=== PATIENT | male | born 1990 | race Caucasian/White ===

== ENCOUNTER 2017-09-13 02:21 | Emergency (ER) | payer SELFPAY ==
[2017-09-13] MEDS ORDERED: HYDROmorphone 2 MG/ML Syringe IM ONE (02:46)
--- NOTE | 2017-09-13 02:46 | EDM.PDOC ---
ED HPI GENERAL MEDICAL PROBLEM - General Chief Complaint: Lower Extremity Injury/Pain Stated Complaint: LEFT LEG- TWO BROKEN BONES Time Seen by Provider: 09/13/17 02:42 - History of Present Illness INITIAL COMMENTS - FREE TEXT/NARRATIVE: HISTORY AND PHYSICAL: History of present illness: The patient is a 27 y/o male who presents here for pain control after being diagnosed with a tib-fib fracture at [facility] earlier this evening. The patient was evaluated there with x-ray and was given fentanyl for pain while there and a prescription for Percocet as well as Percocet for home and was referred to Dr. Valentine in the clinic and he is scheduled to see him at 8 AM. The orthopedic surgeon was contacted about this patient. He was advised not to eat or drink anything after midnight. The patient says that the Percocet are not working and he is here for pain medication. Review of systems: As per history of present illness and below otherwise all systems reviewed and negative. Past medical history: As per history of present illness and as reviewed below otherwise noncontributory. Surgical history: As per history of present illness and as reviewed below otherwise noncontributory. Social history: No reported history of drug or alcohol abuse. Family history: As per history of present illness and as reviewed below otherwise noncontributory. Physical exam: General: Well-developed well-nourished man who is nontoxic and vital signs are noted by me HEENT: Atraumatic, normocephalic, negative for conjunctival pallor or scleral icterus, mucous membranes moist, throat clear, neck supple, nontender, trachea midline. Lungs: Clear to auscultation, breath sounds equal bilaterally, chest nontender. Heart: S1S2, regular rate and rhythm no overt murmurs Abdomen: Soft, nondistended, nontender. NABS Pelvis: Stable nontender. Genitourinary: Deferred. Rectal: Deferred. Extremities: Patient has a cam boot in place and would prefer that I not remove it due to discomfort. Toes are warm and pink with good cap refill. Neuro: Awake, alert, oriented. Patient ambulated using crutches. Motor and sensory unremarkable throughout. Exam nonfocal. Diagnostics: His x-rays from [place] are here on the computer and I've contacted Dr. Valentine at [phone] and he agrees with pain management and he will see the patient in his clinic. Therapeutics: Dilaudid IM Toradol Impression: Ankle fracture with inadequate pain management Definitive disposition and diagnosis as appropriate pending reevaluation and review of above. Left Lower Leg Pain Score (Numeric/FACES): 9 - Related Data Allergies Allergy/AdvReac Type Severity Reaction Status Date / Time No Known Allergies Allergy Verified 09/13/17 02:35 Home Meds: Home Meds . [No Known Home Meds] 09/13/17 [History] Past Medical History HEENT History: Reports: None Cardiovascular History: Reports: None Respiratory History: Reports: None Gastrointestinal History: Reports: None Genitourinary History: Reports: None Musculoskeletal History: Reports: None Neurological History: Reports: None Psychiatric History: Reports: None Endocrine/Metabolic History: Reports: None Hematologic History: Reports: None Immunologic History: Reports: None Oncologic (Cancer) History: Reports: None Dermatologic History: Reports: None - Infectious Disease History Infectious Disease History: Reports: None - Past Surgical History Head Surgeries/Procedures: Reports: None Male Surgical History: Reports: None Social & Family History - Family History HEENT: Reports: None - Caffeine Use Caffeine Use: Reports: None - Alcohol Use Days Per Week of Alcohol Use: 7 Number of Drinks Per Day: 2 Total Drinks Per Week: 14 - Recreational Drug Use Recreational Drug Use: No Review of Systems - Review of Systems Review Of Systems: ROS reveals no pertinent complaints other than HPI. ED EXAM, GENERAL - Physical Exam Exam: See Below (see dictation) Course - Vital Signs Last Recorded V/S: Last Vital Signs Temp 37.1 C 09/13/17 02:31 Pulse 109 H 09/13/17 02:31 Resp 20 09/13/17 02:31 BP 135/68 09/13/17 02:31 Pulse Ox 98 09/13/17 02:31 - Orders/Labs/Meds Orders: Active Orders 24 hr Category Date Time Status HYDROmorphone [Dilaudid] Med 09/13/17 02:46 Once 2 mg IM ONETIME ONE Departure - Departure Time of Disposition: 02:54 Disposition: Home, Self-Care 01 Condition: Good Clinical Impression: Ankle fracture Qualifiers: Encounter type: initial encounter Fracture type: closed Laterality: right Qualified Code(s): S82.891A - Other fracture of right lower leg, initial encounter for closed fracture Ankle pain Qualifiers: Chronicity: acute Laterality: right Qualified Code(s): M25.571 - Pain in right ankle and joints of right foot - Discharge Information Referrals: PCP,None [Primary Care Provider] - Forms: ED Department Discharge Additional Instructions: The following information is given to patients seen in the emergency department who are being discharged to home. This information is to outline your options for follow-up care. We provide all patients seen in our emergency department with a follow-up referral. The need for follow-up, as well as the timing and circumstances, are variable depending upon the specifics of your emergency department visit. If you don't have a primary care physician on staff, we will provide you with a referral. We always advise you to contact your personal physician following an emergency department visit to inform them of the circumstance of the visit and for follow-up with them and/or the need for any referrals to a consulting specialist. The emergency department will also refer you to a specialist when appropriate. This referral assures that you have the opportunity for followup care with a specialist. All of these measure are taken in an effort to provide you with optimal care, which includes your followup. Under all circumstances we always encourage you to contact your private physician who remains a resource for coordinating your care. When calling for followup care, please make the office aware that this follow-up is from your recent emergency room visit. If for any reason you are refused follow-up, please contact the [facility] emergency department at and ask to speak to the emergency department charge nurse. [facility]--Orthopedic clinic Professional [address] [id number] Please continue to wear the cam boot and loosen while you're sleeping and use crutches at all times. Please contact the orthopedic clinic at 8 AM to have an appointment made to see Dr. Valentine today and fill your prescription for Percocet the you have been given and take as directed. Ice and elevate as much as possible. - My Orders Last 24 Hours: My Active Orders 09/13/17 02:46 HYDROmorphone [Dilaudid] 2 mg IM ONETIME ONE - Assessment/Plan Last 24 Hours: My Active Orders 09/13/17 02:46 HYDROmorphone [Dilaudid] 2 mg IM ONETIME ONE
[2017-09-13] MEDS ORDERED: Ketorolac 60 MG/2 ML SDV IM ONE (02:56)
[2017-09-13] MEDS ORDERED: Ketorolac 60 MG/2 ML SDV ONE (02:59)
[2017-09-13] MEDS ORDERED: HYDROmorphone 1 MG/ML Syringe IM ONE (03:00)
[2017-09-13] MEDS ORDERED: HYDROmorphone 1 MG/ML Syringe ONE (03:00)
== END 2017-09-13 03:49 | disposition home or self-care (01) ==
LOC: MW.ED 02:21
DX: S82.891A Other fracture of right lower leg, initial encounter for closed fracture (principal); W17.89XA Other fall from one level to another, initial encounter
CPT/HCPCS: 96372; 99283; J1170; J1885

== ENCOUNTER 2017-09-17 12:14 | Day surgery (SDC) | payer SELFPAY ==
[2017-09-17] MEDS ORDERED: fentaNYL 250 MCG/5 ML SDV ONE (12:26)
[2017-09-17] MEDS ORDERED: Propofol 200 MG/20 ML SDV ONE (12:26)
[2017-09-17] MEDS ORDERED: Midazolam 1 MG/ML 2 ML SDV ONE (12:26)
[2017-09-17] MEDS ORDERED: Ondansetron 4 MG/2 ML SDV ONE (12:26)
[2017-09-17] MEDS ORDERED: Lidocaine 2% 5 ML SDV ONE (12:26)
--- NOTE | 2017-09-17 12:37 | PCM.PREANE ---
Preanesthetic Assessment - Anesthesia/Transfusion/Family Hx Anesthesia History: No Prior Anesthesia Family History of Anesthesia Reaction: No Transfusion History: No Prior Transfusion(s) Intubation History: Unknown - Review of Systems General: No Symptoms Pulmonary: No Symptoms Cardiovascular: No Symptoms Gastrointestinal: No Symptoms Neurological: No Symptoms Other: Reports: None - Physical Assessment Height: 1.91 m Weight: 108.862 kg ASA Class: 2 Mental Status: Alert & Oriented x3 Airway Class: Mallampati = 2 Dentition: Reports: Normal Dentition (lower retainer) Thyro-Mental Finger Breadths: 3 Mouth Opening Finger Breadths: 2 ROM/Head Extension: Full Lungs: Clear to Auscultation, Normal Respiratory Effort Cardiovascular: Regular Rate, Regular Rhythm - Allergies Allergies/Adverse Reactions: Allergies Allergy/AdvReac Type Severity Reaction Status Date / Time No Known Allergies Allergy Verified 09/13/17 02:35 - Blood Blood Available: No - Anesthesia Plan Pre-Op Medication Ordered: None - Acknowledgements Anesthesia Type Planned: General Anesthesia Pt an Appropriate Candidate for the Planned Anesthesia: Yes Alternatives and Risks of Anesthesia Discussed w Pt/Guardian: Yes Pt/Guardian Understands and Agrees with Anesthesia Plan: Yes PreAnesthesia Questionnaire HEENT History: Reports: Other (See Below) Other HEENT History: has lower permanent dental retainer Cardiovascular History: Reports: None Respiratory History: Reports: None Gastrointestinal History: Reports: None Genitourinary History: Reports: None Musculoskeletal History: Reports: Other (See Below) (Rt. ankle fx) Neurological History: Reports: None Psychiatric History: Reports: None Endocrine/Metabolic History: Reports: Obesity/BMI 30+ Hematologic History: Reports: None Immunologic History: Reports: None Oncologic (Cancer) History: Reports: None Dermatologic History: Reports: None - Infectious Disease History Infectious Disease History: Reports: None - Past Surgical History Head Surgeries/Procedures: Reports: None Male Surgical History: Reports: None - SUBSTANCE USE Smoking Status *Q: Current Every Day Smoker Tobacco Use Within Last Twelve Months: Cigarettes Recreational Drug Use History: No - HOME MEDS Home Medications: Home Meds oxyCODONE HCl/Acetaminophen [Percocet 5-325 mg Tablet] 1 - 2 tab PO Q4H PRN [History] - CURRENT (IN HOUSE) MEDS Current Meds: Current Medications Discontinued Medications Fentanyl (Sublimaze) Confirm Administered Dose 250 mcg .ROUTE .STK-MED ONE Stop: 09/17/17 12:27 Cefazolin Sodium 2,000 mg/ (Sodium Chloride) 100 mls @ 100 mls/hr IV ONETIME ONE Stop: 09/17/17 07:56 Acetaminophen (Ofirmev) Confirm Administered Dose 100 mls @ as directed IV .STK- MED ONE Stop: 09/17/17 12:29 Lidocaine (Xylocaine-Mpf 2%) Confirm Administered Dose 5 ml .ROUTE .STK-MED ONE Stop: 09/17/17 12:27 Midazolam HCl (Versed 1 Mg/Ml) Confirm Administered Dose 2 mg .ROUTE .STK-MED ONE Stop: 09/17/17 12:27 Ondansetron HCl (Zofran) Confirm Administered Dose 4 mg .ROUTE .STK-MED ONE Stop: 09/17/17 12:27 Propofol (Diprivan 20 Ml) Confirm Administered Dose 200 mg .ROUTE .STK-MED ONE Stop: 09/17/17 12:27
[2017-09-17] MEDS ORDERED: Bupivacaine 0.5% 30 ML SDV ONE (12:57)
[2017-09-17] MEDS ORDERED: Lactated Ringers 1,000 ML IV SCH (13:00)
[2017-09-17] MEDS ORDERED: Ketorolac 30 MG/ML SDV ONE (13:30)
[2017-09-17] MEDS ORDERED: HYDROmorphone 2 MG/ML SDV ONE (13:39)
[2017-09-17] MEDS ORDERED: Meperidine PF 50 MG/ML Syringe IVPUSH ONE (13:58)
[2017-09-17] MEDS ORDERED: Acetaminophen/oxyCODONE 325-5 MG Tab PO ONE (13:59)
[2017-09-17] MEDS ORDERED: Meperidine PF 25 MG/ML Syringe ONE (13:59)
--- NOTE | 2017-09-17 13:59 | PCM.OPNOTE ---
- General Post-Op/Procedure Note Date of Surgery/Procedure: 09/17/17 Operative Procedure(s): ORIF right ankle lateral malleolus and syndesmosis Findings: syndesmotic disruption Pre Op Diagnosis: right ankle lateral malleolus fracture with syndesmotic disruption Post-Op Diagnosis: same Anesthesia Technique: General LMA Primary Surgeon: Arsalan CAMPA in mLs: 10 Complications: none Condition: Good
[2017-09-17] MEDS: fentaNYL 100 MCG/2 ML SDV IVPUSH PRN ×2 (14:11→14:19)
[2017-09-17] MEDS ORDERED: Ketamine 500 mg/10 ML MDV ONE (14:40)
--- NOTE | 2017-09-17 14:56 | PCM.POSTAN ---
POST ANESTHESIA ASSESSMENT - MENTAL STATUS Mental Status: Alert, Oriented - RESPIRATORY Respiratory Status: Respiratory Rate WNL, Airway Patent, O2 Saturation Stable, Supplemental Oxygen - CARDIOVASCULAR CV Status: Pulse Rate WNL, Blood Pressure Stable - GASTROINTESTINAL GI Status: No Symptoms - PAIN Pain Score: 0 - POST OP HYDRATION Hydration Status: Adequate & Stable
--- NOTE | 2017-09-17 15:00 | CR ---
EXAMINATION: Right ankle HISTORY: ORIF COMPARISON: 09/12/2017 TECHNIQUE: 6 fluoroscopic images provided FINDINGS/IMPRESSION: Operative control films demonstrate screw and plate fixation of a distal fibular fracture. Widening of the ankle mortise is noted with subsequent placement of syndesmotic anchor.
--- NOTE | 2017-09-17 15:31 | OR ---
SURGEON: Arsalan Valentine MD DATE OF PROCEDURE: 09/17/2017 PREOPERATIVE DIAGNOSIS: Right ankle lateral malleolus fracture with syndesmotic disruption. POSTOPERATIVE DIAGNOSIS: Right ankle lateral malleolus fracture with syndesmotic disruption. OPERATION PERFORMED: Open reduction and internal fixation, right ankle lateral malleolus and syndesmosis. ANESTHESIA: General with LMA. COMPLICATIONS: None. ESTIMATED BLOOD LOSS: 10 mL. SPECIMENS: None. TOURNIQUET TIME: 25 minutes. IMPLANTS: [place] 9 hole 1/3rd tubular plate, two 3.5 interfragmentary screws, and six 3.5 bicortical screws, and Edgardo ZipTight syndesmotic fixation device. INDICATIONS: The patient is a 27-year-old male, who a couple of days ago suffered a high fibula fracture with posterior malleolus fracture and syndesmotic disruption. I discussed with him the risks, benefits, alternatives, complications of procedure including operative fixations and nonoperative fixations, we decided on operative fixation. He understands the risks, benefits, complications, including infection, neurovascular injury, continued pain, nonresolution of symptoms, malunion, nonunion, DVT, and he wished to proceed. PROCEDURE IN DETAIL: The patient was seen in the preoperative area. Operative extremity was marked with the patient. He was transferred to operating room and placed supine on the operating table. General anesthesia was induced. An LMA was placed. He received preoperative antibiotics of Ancef. A Well-padded upper thigh tourniquet was placed. The splint was removed. The incision was clipped with a clipper and the right leg was prepped and draped in usual sterile fashion using alcohol followed by ChloraPrep. There was Coban covering over the foot. A formal time-out was taken, identifying the correct patient, procedure, and extremity. Limb was exsanguinated with an Esmarch bandage. Tourniquet inflated to 250 mmHg. A 12 cm incision centered over the lateral malleolus was made. Dissection carried down to subcu tissues. Hemostasis was obtained. Superficial peroneal nerve was found very superior aspect of the incision and protected, it had a branch that came off, very small branch that went posterior to the fibula just distal to the fracture, which was sacrificed. The fracture was readily identified and subperiosteal dissection of the fibula was made upon the peroneal muscles posteriorly. The fracture hematoma was cleaned out and then reduction clamps were used to reduce the fracture anatomically and two 3.5 interfragmentary screws were placed after drilling with a 3.5 and 2.5 drill bit. A 9 hole plate was decided upon. It was centered over the fracture. Three distal bicortical screws were placed keeping one of screw holes open for syndesmotic fixation and three proximal screws were placed, all bicortical. Following this, under fluoroscopic control, which showed anatomic reduction other than the posterior malleolus was displaced several mm posteriorly. There was noted to be three openings of the syndesmosis and medial clear space with external rotation. Therefore, separate tiny stab incisions were made with medial-side and reduction clamp was placed over the ankle and the syndesmosis was disrupted with the ankle held in neutral angling about 30 degrees anteriorly. The 3.5 drill bit was placed parallel to the joint across all four cortices and ZipTight was placed across this and secured and tightened down and the lateral aspect was tied. The clamp was removed. The ankle ranged very well with no loss of motion. Fluoroscopy confirmed anatomic reduction. There was no further opening of the syndesmosis. AP mortise and lateral x-rays confirmed anatomic reduction of the fibula. The posterior malleolus was slightly displaced, but was not contributing to the stability of the mortise. The wound tourniquet was then deflated. Hemostasis was obtained. The deep part of the skin was closed with 0 Vicryl and the skin was closed with a running 2-0 STRATAFIX, and then skin was closed with darling including the medial tiny stab. Xeroform and Felton type splint were placed. The patient was extubated in the operating room and transferred to recovery room in stable condition. All sponge and needle counts correct at the end of the case. No complications. The patient is kept nonweightbearing. We will see him back in two weeks for transition to a cast. KOFFI JORDAN /[id number]
--- NOTE | 2017-09-17 15:48 | PCM48HPAN ---
Post Anesthesia Note - EVALUATION WITHIN 48HRS OF ANESTHETIC Vital Signs in Normal Range: Yes Patient Participated in Evaluation: Yes Respiratory Function Stable: Yes Airway Patent: Yes Cardiovascular Function Stable: Yes Hydration Status Stable: Yes Pain Control Satisfactory: Yes Nausea and Vomiting Control Satisfactory: Yes Mental Status Recovered: Yes Resp Rate: 12 - COMMENTS/OBSERVATIONS Free Text/Narrative:: no anesthesia problems
== END 2017-09-17 16:05 | disposition home or self-care (01) ==
LOC: MW.SDS 12:14
PROVIDERS: ATTEND Orthopaedic Surgery
DX: S82.61XA Displaced fracture of lateral malleolus of right fibula, initial encounter for closed fracture (principal); F17.210 Nicotine dependence, cigarettes, uncomplicated; W01.0XXA Fall on same level from slipping, tripping and stumbling without subsequent striking against object, initial encounter; Y93.39 Activity, other involving climbing, rappelling and jumping off; Y92.828 Other wilderness area as the place of occurrence of the external cause
CPT/HCPCS: 27792; 76000; J1170; J1885; J2175; J2250; J2405; J3010; C1713; C1776; J2704